=== PATIENT | male | born 1945 | race Caucasian/White ===

== ENCOUNTER 2017-03-26 08:16 | Outpatient (CLI) | payer MEDICARE, OTHER ==
[2017-03-26 13:12] LABS: CALCIUM 9.4 mg/dL (8.5-10.3); CREATININE 1.4 mg/dL (0.6-1.2); POTASSIUM 4.1 mmol/L (3.5-5.0)
== END 2017-03-26 08:17 | disposition home or self-care (01) ==
LOC: LAB.WCP 08:16
PROVIDERS: ATTEND Family Medicine
DX: I10 Essential (primary) hypertension (principal)
CPT/HCPCS: 36415; 80048

== ENCOUNTER 2017-04-16 17:45 | Outpatient (CLI) | payer MEDICARE, OTHER ==
[2017-04-16 13:43] LABS: ALBUMIN/GLOBULIN RATIO 1.5 (1.0-2.2); BILIRUBIN,TOTAL 0.6 mg/dL (0.2-1.0); BUN - BLOOD UREA NITROGEN 27 mg/dL (6-20); CALCIUM 9.4 mg/dL (8.5-10.3); CARBON DIOXIDE - CO2 25 mmol/L (21-32); CHLORIDE 107 mmol/L (101-111); CHOL/HDL RATIO 3.7 (<5.0); CHOLESTEROL 156 mg/dL; CREATININE 1.4 mg/dL (0.6-1.2); GFR - MDRD 50 (>89); GLUCOSE 98 mg/dL (70-100); HDL CHOLESTEROL 42 mg/dL; LDL/HDL RATIO 2.3 (<3.6); POTASSIUM 4.1 mmol/L (3.5-5.0); SODIUM 139 mmol/L (135-145); TOTAL PROTEIN 6.8 g/dL (6.7-8.2); TRIGLYCERIDES 97 mg/dL; VLDL CHOLESTEROL 19 mg/dL
== END 2017-04-16 17:46 | disposition home or self-care (01) ==
LOC: LAB.WCP 17:45
PROVIDERS: ATTEND Family Medicine
DX: N13.30 Unspecified hydronephrosis (principal); N40.0 Benign prostatic hyperplasia without lower urinary tract symptoms
CPT/HCPCS: 36415; 80053; 80061; 84153

== ENCOUNTER 2017-09-27 08:00 | Outpatient (CLI) | payer MEDICARE, OTHER ==
[2017-09-27 19:24] LABS: ALBUMIN 4.1 g/dL (3.2-5.5); ALBUMIN/GLOBULIN RATIO 1.4 (1.0-2.2); BILIRUBIN,TOTAL 0.6 mg/dL (0.2-1.0); CREATININE 1.5 mg/dL (0.6-1.2)
== END 2017-09-27 08:01 | disposition home or self-care (01) ==
LOC: LAB.WCP 08:00
PROVIDERS: ATTEND Family Medicine
DX: I12.9 Hypertensive chronic kidney disease with stage 1 through stage 4 chronic kidney disease, or unspecified chronic kidney disease (principal); N18.3 Chronic kidney disease, stage 3 (moderate)
CPT/HCPCS: 36415; 80053

== ENCOUNTER 2018-07-11 10:56 | Outpatient (CLI) | payer MEDICARE, OTHER ==
[2018-07-11 11:10] LABS: BASOPHILS # (AUTO) 0.1 10^3/uL (0.0-0.1); EOSINOPHILS # (AUTO) 0.2 10^3/uL (0.0-0.7); EOSINOPHILS % (AUTO) 3.4 %; HGB - HEMOGLOBIN 14.2 g/dL (14.0-18.0); LYMPHOCYTES # (AUTO) 1.1 10^3/uL (1.5-3.5); LYMPHOCYTES % (AUTO) 18.7 %; MEAN CORPUSCULAR HGB CONC 34.2 g/dL (32.0-36.0); MEAN CORPUSCULAR VOLUME 87.7 fL (80.0-94.0); MEAN PLATELET VOLUME 8.3 fL (7.4-11.4); MONOCYTES # (AUTO) 0.5 10^3/uL (0.0-1.0); MONOCYTES % (AUTO) 8.8 %; NEUTROPHILS # (AUTO) 3.9 10^3/uL (1.5-6.6); NEUTROPHILS % (AUTO) 68.1 %; PLT - PLATELET COUNT 213 10^3/uL (130-450); RED BLOOD COUNT 4.73 10^6/uL (4.70-6.10); RED CELL DISTRIBUTION WIDTH 13.3 % (12.0-15.0); WHITE BLOOD COUNT 5.8 x10^3/uL (4.8-10.8)
[2018-07-11 11:18] LABS: CALCIUM 9.1 mg/dL (8.5-10.3); CREATININE 1.4 mg/dL (0.6-1.2)
== END 2018-07-11 10:57 | disposition home or self-care (01) ==
LOC: LAB 10:56
PROVIDERS: ATTEND Urology
DX: Z01.812 Encounter for preprocedural laboratory examination (principal); N13.30 Unspecified hydronephrosis
CPT/HCPCS: 36415; 80048; 85025; 93005

== ENCOUNTER 2018-09-15 08:00 | Outpatient (CLI) | payer MEDICARE, OTHER ==
[2018-09-15 19:28] LABS: BASOPHILS # (AUTO) 0.1 10^3/uL (0.0-0.1); BASOPHILS % (AUTO) 1.2 %; EOSINOPHILS # (AUTO) 0.2 10^3/uL (0.0-0.7); EOSINOPHILS % (AUTO) 4.4 %; HGB - HEMOGLOBIN 14.4 g/dL (14.0-18.0); LYMPHOCYTES # (AUTO) 1.1 10^3/uL (1.5-3.5); LYMPHOCYTES % (AUTO) 23.8 %; MEAN CORPUSCULAR HEMOGLOBIN 29.9 pg (27.0-31.0); MEAN CORPUSCULAR HGB CONC 33.2 g/dL (32.0-36.0); MEAN CORPUSCULAR VOLUME 89.8 fL (80.0-94.0); MEAN PLATELET VOLUME 9.2 fL (7.4-11.4); MONOCYTES # (AUTO) 0.4 10^3/uL (0.0-1.0); MONOCYTES % (AUTO) 8.8 %; NEUTROPHILS # (AUTO) 2.8 10^3/uL (1.5-6.6); NEUTROPHILS % (AUTO) 61.8 %; PLT - PLATELET COUNT 196 10^3/uL (130-450); RED BLOOD COUNT 4.81 10^6/uL (4.70-6.10); RED CELL DISTRIBUTION WIDTH 13.7 % (12.0-15.0); WHITE BLOOD COUNT 4.6 x10^3/uL (4.8-10.8)
[2018-09-15 19:35] LABS: ALBUMIN/GLOBULIN RATIO 1.3 (1.0-2.2); ALKALINE PHOSPHATASE 68 IU/L (42-121); ALT ALANINE AMINOTRANSFERASE 29 IU/L (10-60); AST ASPARTATE AMINOTRANSFERASE 23 IU/L (10-42); BILIRUBIN,TOTAL 0.8 mg/dL (0.2-1.0); BUN - BLOOD UREA NITROGEN 21 mg/dL (6-20); CALCIUM 9.2 mg/dL (8.5-10.3); CARBON DIOXIDE - CO2 28 mmol/L (21-32); CHLORIDE 107 mmol/L (101-111); CHOL/HDL RATIO 4.1 (<5.0); CHOLESTEROL 138 mg/dL; CREATININE 1.5 mg/dL (0.6-1.2); GFR - MDRD 46 (>89); GLUCOSE 92 mg/dL (70-100); HDL CHOLESTEROL 34 mg/dL; LDL CHOLESTEROL,CALCULATED 74 mg/dL; LDL/HDL RATIO 2.2 (<3.6); SODIUM 140 mmol/L (135-145); VLDL CHOLESTEROL 30 mg/dL
== END 2018-09-15 23:59 | disposition home or self-care (01) ==
LOC: LAB.WCP 08:00
PROVIDERS: ATTEND Family Medicine
DX: I12.9 Hypertensive chronic kidney disease with stage 1 through stage 4 chronic kidney disease, or unspecified chronic kidney disease (principal); N18.3 Chronic kidney disease, stage 3 (moderate); E78.9 Disorder of lipoprotein metabolism, unspecified; Z12.5 Encounter for screening for malignant neoplasm of prostate; N13.30 Unspecified hydronephrosis; G47.62 Sleep related leg cramps
CPT/HCPCS: 36415; 80053; 80061; 85025; G0103; 83721; 84153

== ENCOUNTER 2019-05-28 08:00 | Outpatient (CLI) | payer MEDICARE, OTHER ==
[2019-05-28 13:23] LABS: CREATININE 1.4 mg/dL (0.6-1.2)
== END 2019-05-28 23:59 | disposition home or self-care (01) ==
LOC: LAB.WCP 08:00
PROVIDERS: ATTEND Family Medicine
DX: N18.3 Chronic kidney disease, stage 3 (moderate) (principal)
CPT/HCPCS: 36415; 80048

== ENCOUNTER 2019-09-08 09:07 | Outpatient (CLI) | payer MEDICARE, OTHER ==
[2019-09-08 09:28] LABS: BASOPHILS # (AUTO) 0.1 10^3/uL (0.0-0.1); BASOPHILS % (AUTO) 1.3 %; EOSINOPHILS # (AUTO) 0.3 10^3/uL (0.0-0.7); EOSINOPHILS % (AUTO) 5.3 %; HGB - HEMOGLOBIN 13.7 g/dL (14.0-18.0); LYMPHOCYTES # (AUTO) 1.1 10^3/uL (1.5-3.5); LYMPHOCYTES % (AUTO) 19.7 %; MEAN CORPUSCULAR HEMOGLOBIN 30.8 pg (27.0-31.0); MEAN CORPUSCULAR HGB CONC 34.7 g/dL (32.0-36.0); MEAN CORPUSCULAR VOLUME 88.8 fL (80.0-94.0); MEAN PLATELET VOLUME 10.1 fL (7.4-11.4); MONOCYTES # (AUTO) 0.5 10^3/uL (0.0-1.0); MONOCYTES % (AUTO) 8.4 %; NEUTROPHILS # (AUTO) 3.6 10^3/uL (1.5-6.6); NEUTROPHILS % (AUTO) 64.9 %; PLT - PLATELET COUNT 232 10^3/uL (130-450); RED BLOOD COUNT 4.45 10^6/uL (4.70-6.10); RED CELL DISTRIBUTION WIDTH 12.9 % (12.0-15.0); WHITE BLOOD COUNT 5.5 x10^3/uL (4.8-10.8)
[2019-09-08 09:36] LABS: CALCIUM 8.9 mg/dL (8.5-10.3); CREATININE 1.5 mg/dL (0.6-1.2)
--- NOTE | 2019-09-08 14:57 | XRAY Report ---
Reason: N Procedure Date: 09/08/2019 Accession Number: [id number] / [id number] Procedure: XR - Chest 2 View X-Ray CPT Code: 44113 Final Report FULL RESULT: EXAM: CHEST RADIOGRAPHY EXAM DATE: 09/08/2019 10:18 AM. CLINICAL HISTORY: Presurgical examination. Right hydronephrosis with planned stent manipulation. COMPARISON: CHEST 11/16/2008 10:21 AM. TECHNIQUE: 2 views. FINDINGS: Lungs/Pleura: No focal opacities evident. No pleural effusion. No pneumothorax. Normal volumes. Mediastinum: The cardiac silhouette is at the upper limits of normal for size, subtle calcifications of the arch are noted. Other: Calcification in the right upper quadrant may represent urolithiasis. IMPRESSION: No acute cardiopulmonary abnormality. RADIA
== END 2019-09-08 09:08 | disposition home or self-care (01) ==
LOC: LAB 09:07
PROVIDERS: ATTEND Urology
DX: Z01.818 Encounter for other preprocedural examination (principal); N13.30 Unspecified hydronephrosis; N26.1 Atrophy of kidney (terminal)
CPT/HCPCS: 36415; 71046; 80048; 85025; 93005

== ENCOUNTER 2019-09-14 07:49 | Day surgery (SDC) | payer MEDICARE, OTHER ==
[~2019-09-14 07:49] MED LIST: cefTRIAXone 2 GM VIAL ONE
[2019-09-14] MEDS ORDERED: LACTATED RINGERS 1,000 ML IV ONE ×3 (08:33→11:47)
--- NOTE | 2019-09-14 09:09 | ANESTHESIA ---
Pre-Anesthesia VS, & Labs - Diagnosis right hydronephrosis - Procedure cystoscopy, right ureteral stent removal and replacement Vital Signs: Temp Pulse Resp BP Pulse Ox 36.7 C 58 L 18 145/95 H 97 09/14/19 08:06 09/14/19 08:06 09/14/19 08:06 09/14/19 08:06 09/14/19 08:06 Height 5 ft 7 in Weight (kg) 93 kg Body Mass Index 32.2 - NPO >8 hours - Lab Results Current Lab Results: Laboratory Tests 09/14/19 08:44: POC Whole Bld Glucose 94 Home Medications and Allergies Home Medications: Ambulatory Orders Hydrochlorothiazide 12.5 mg PO DAILY 09/08/19 Magnesium Oxide 500 mg PO DAILY 09/08/19 Pantoprazole Sodium 40 mg PO DAILY 09/08/19 Telmisartan [Micardis] 80 mg PO DAILY 09/08/19 Aspirin Chewable [St Luis Aspirin] 81 mg PO DAILY 06/20/16 Atorvastatin [Lipitor] 10 mg PO DAILY PM 06/20/16 Hydrochlorothiazide 12.5 mg PO DAILY 09/08/19 Magnesium Oxide 500 mg PO DAILY 09/08/19 Pantoprazole Sodium 40 mg PO DAILY 09/08/19 Telmisartan [Micardis] 80 mg PO DAILY 09/08/19 Allergies/Adverse Reactions: Allergies Allergy/AdvReac Type Severity Reaction Status Date / Time No Known Drug Allergies Allergy Verified 06/20/16 13:56 Anes History & Medical History - Anesthetic History Anesthesia Complications: reports: No previous complications, Emergence delirium (with first anesthetic, no problems since.) - Medical History Cardiovascular: reports: Hypertension, High cholesterol Pulmonary: reports: Sleep apnea, CPAP use Gastrointestinal: reports: GERD (controlled on medication) Urinary: reports: Other (right hydronephrosis) Neuro: reports: None Musculoskeletal: reports: Chronic back pain Endocrine/Autoimmune: reports: None Blood Disorders: reports: None Skin: reports: None Smoking Status: Never smoker Psychosocial: reports: Alcohol (2 beers, several times per week.) - Surgical History General: Cholecystectomy Orthopedic: Other Exam General: Alert, Oriented x3, Cooperative, No acute distress Dental: WNL Mouth Openin Fingerbreadth Neck Mobility: Normal Mallampati classification: III Thyromental Distance: greater than 6 cm Respiratory: Lungs clear, Normal breath sounds, No respiratory distress, No accessory muscle use Cardiovascular: Regular rate, Normal S1, Normal S2, No murmurs Mental/Cognitive Status: Alert/Oriented X3, Normal for patient Plan Anesthesia Type: General Consent for Procedure(s) Verified and Reviewed: Yes Code Status: Attempt Resuscitation ASA classification: 2-Mild systemic disease Is this case an emergency?: No
[2019-09-14] MEDS ORDERED: IOTHALAMATE MEGLUMINE 50 ML VIAL ONE (10:10)
[2019-09-14] MEDS ORDERED: MIDAZOLAM 2 MG/2 ML VIAL IVP ONE (10:23)
[2019-09-14] MEDS ORDERED: LIDOCAINE-MPF 2% 5 ML VIAL IM ONE (10:23)
[2019-09-14] MEDS ORDERED: PROPOFOL 200 MG/20 ML VIAL IVP ONE (10:23)
[2019-09-14] MEDS ORDERED: DEXAMETHASONE 4 MG/ML VIAL IVP ONE (10:23)
[2019-09-14] MEDS ORDERED: ONDANSETRON 4 MG/2 ML VIAL IVP ONE (10:23)
[2019-09-14] MEDS ORDERED: fentaNYL 100 MCG/2 ML VIAL IVP ONE (10:23)
[2019-09-14] MEDS ORDERED: IOTHALAMATE MEGLUMINE 50 ML VIAL IVP ONE ×2 (11:17)
--- NOTE | 2019-09-14 11:51 | IMMEDIATE POSTOPERATIVE NOTE ---
Immediate Postoperative Note - Procedure Note Procedure Date: 09/14/19 Pre-Op Diagnosis: R hydronephrosis Procedure: Cystoscopy, R ureteral stent removal, R ureteral stent placement, R retrograde pyelogram, and dilation of urethral meatal stenosis Post-Op Diagnosis: R hydronephrosis, urethral meatal stenosis Primary Surgeon: Elvis Perez MD Job Service Consultant: None Anesthesia Type: Other (General) Findings: Mild urethral meatal stenosis was seen. Dilation of urethral meatal stenosis was performed. Cystoscopy revealed no bladder tumors or calculi and distal end of R ureteral stent emerging from R ureteral orifice. Old R ureteral stent was removed. R retrograde pyelogram showed moderate-severe R hydronephrosis. New R ureteral stent was placed. Complications: No complications Estimated Blood Loss (in cc): 2 Drains, Catheters, Devices: 22cm x 6F R ureteral JJ stent (no string) Specimens and Cultures: None Plan of Care: Patient to be discharged home when stable and to return to see me in the office in 1-4 weeks for post-op visit.
[2019-09-14] MEDS ORDERED: HYDROmorphone 0.5 MG/0.5 ML SYRINGE IVP PRN (12:03)
[2019-09-14] MEDS ORDERED: ONDANSETRON 4 MG/2 ML VIAL IVP PRN (12:03)
[2019-09-14] MEDS ORDERED: HYDROcod/ACETAM 10 MG/325 MG TABLET PO PRN (12:03)
[2019-09-14 12:36] VITALS: BP 116/95
--- NOTE | 2019-09-16 07:32 | XRAY Report ---
Reason: CYSTO WITH STENT EXCHANGE Procedure Date: 09/14/2019 Accession Number: [id number] / [id number] Procedure: FL - OR C-Arm Procedure CPT Code: Final Report FULL RESULT: EXAM: FLUOROSCOPIC GUIDANCE EXAM DATE: 09/14/2019 11:28 AM. CLINICAL HISTORY: Cystography with stent exchange. COMPARISON: None. FINDINGS: Fluoroscopy for procedural guidance. IMPRESSION: Fluoroscopic guidance provided for Dr. Perez. Total fluoroscopy time: 0.6 minutes. Number of images: 3. RADIA
--- NOTE | 2019-09-17 09:27 | OPERATIVE REPORT ---
DATE OF SERVICE: 09/14/2019 Physician: Elvis Perez MD PREOPERATIVE DIAGNOSIS: Right hydronephrosis. POSTOPERATIVE DIAGNOSES: 1. Right hydronephrosis. 2. Urethral meatal stenosis. PROCEDURE PERFORMED: 1. Cystoscopy. 2. Right ureteral stent removal. 3. Right ureteral stent placement. 4. Right retrograde pyelogram. 5. Dilation of urethral meatal stenosis. SURGEON: Elvis Perez MD TUNNEL MAN: None. ANESTHESIA: General. ESTIMATED BLOOD LOSS: 2 mL SPECIMENS: None. DRAINS: A 22 cm x 6-Korean right ureteral double-J stent (no string). COMPLICATIONS: None. CONDITION: Stable. FINDINGS: Mild urethral meatal stenosis was seen. Dilation of urethral meatal stenosis was performe d. Cystoscopy revealed no bladder tumors or calculi and distal end of right ureteral stent emerging from the right ureteral orifice. Old right ureteral stent was removed. Right retrograde pyelogram s howed moderate to severe right hydronephrosis, new right ureteral stent was placed. INDICATIONS: Patient is a 74-year-old male with right hydronephrosis with chronic indwelling right u reteral stent and last had cystoscopy and right ureteral stent change in 02/2019. Patient now presen ts for cystoscopy, right ureteral stent removal and right ureteral stent placement. DESCRIPTION OF PROCEDURE: Patient was brought to the operating room and was placed supine on the ope rating table. Patient was given IV antibiotics. Sequential compression device boots were placed. G eneral anesthesia was administered. Patient was brought down into dorsal lithotomy position, the pat ient was prepped and draped in standard sterile fashion. A 22-Korean rigid cystoscope was attempted to be passed through the urethral meatus and into the distal urethra; however, this was initially deidre ble to be done as a mild urethral meatal stenosis was seen. Dilation of the urethral meatal stenosis was performed. The urethral meatal stenosis was dilated bluntly using the rigid cystoscope. After dilation of urethral meatal stenosis was performed the 22-Korean rigid cystoscope was able to be pass ed through the urethral meatus and into the distal urethra without difficulty. Cystoscopy revealed n o bladder tumors or calculi and the distal end of the right ureteral stent emerging from the right ur eteral orifice and bilateral ureteral orifices in normal position. The distal end of the right urete ral stent was grasped with the cystoscopic grasper, and brought out to the urethral meatus. An Ampla tz Super Stiff guidewire was able to be passed through the old ureteral stent up the right ureter and into the right renal pelvis. The old right ureteral stent was removed in its entirety and was disca rded. The rigid cystoscope was passed over the wire through the urethra into the bladder. A 5-Frenc h open-ended catheter was passed over the guidewire through the cystoscope. Once passed up the right ureter and into the right renal pelvis, the guidewire was removed. Urine was drained from the right renal collecting system via the open-ended catheter. A small amount of contrast was instilled throu gh the open-ended catheter into the right renal collecting system to illuminate the right renal colle cting system to aid in stent placement, thus performing a right retrograde pyelogram. Right retrogra de pyelogram showed moderate to severe right hydronephrosis. Then a new right ureteral stent was rubens gigi. Specifically, an angle-tipped UltraTract guidewire was advanced through the open-ended catheter up the right ureter and into the right renal pelvis. The [facility] A new right ureteral stent was placed, specifically a 22 cm x 6-Korean ureteral double-J braden nt. With the stents removed, prior to stent placement, was passed over the wire through the cystosco pe was passed up the right ureter. It was placed so that the proximal pigtail was located in the rig ht renal pelvis and the distal pigtail was located in the bladder. The guidewire was removed. Corre ct positioning of the stent was confirmed both fluoroscopically and under direct visualization using the cystoscope. Good efflux of contrast could be seen draining from the distal end of the stent into the bladder, further confirming correct stent positioning thus a new right ureteral stent was placed . The bladder was drained via the cystoscope. The cystoscope was then removed from the patient. Sk in was clean and dried. Patient was placed in the supine position. Patient was awakened from genera l anesthesia and was transferred to the recovery room in stable condition. Patient tolerated the pro cedure well. Postoperative plan is for the patient to be discharged home if stable and return to see tn in the off ice in 1-4 weeks for a postoperative visit. TD: 09/17/2019 08:06
== END 2019-09-14 07:50 | disposition home or self-care (01) ==
LOC: SDS 07:49
PROVIDERS: ATTEND Urology
PROC: 0T768DZ Dilation of Right Ureter with Intraluminal Device, Via Natural or Artificial Opening Endoscopic (ICD-10-PCS; 2019-09-14)
PROC: 0TP98DZ Removal of Intraluminal Device from Ureter, Via Natural or Artificial Opening Endoscopic (ICD-10-PCS; principal; 2019-09-14 09:00)
DX: N13.30 Unspecified hydronephrosis (principal); N35.911 Unspecified urethral stricture, male, meatal; G47.33 Obstructive sleep apnea (adult) (pediatric); I12.9 Hypertensive chronic kidney disease with stage 1 through stage 4 chronic kidney disease, or unspecified chronic kidney disease; N18.9 Chronic kidney disease, unspecified; E78.5 Hyperlipidemia, unspecified; K21.9 Gastro-esophageal reflux disease without esophagitis; G89.29 Other chronic pain; M54.9 Dorsalgia, unspecified; Z79.82 Long term (current) use of aspirin
CPT/HCPCS: 52332; C1758; J7120; Q9961

== ENCOUNTER 2020-01-29 07:00 | Outpatient (CLI) | payer MEDICARE, OTHER ==
[2020-01-29 13:25] LABS: BASOPHILS % (AUTO) 0.7 %; EOSINOPHILS # (AUTO) 0.2 10^3/uL (0.0-0.7); EOSINOPHILS % (AUTO) 3.3 %; HGB - HEMOGLOBIN 13.5 g/dL (14.0-18.0); LYMPHOCYTES # (AUTO) 0.9 10^3/uL (1.5-3.5); LYMPHOCYTES % (AUTO) 16.2 %; MEAN CORPUSCULAR HGB CONC 32.7 g/dL (32.0-36.0); MEAN CORPUSCULAR VOLUME 88.8 fL (80.0-94.0); MEAN PLATELET VOLUME 11.6 fL (7.4-11.4); MONOCYTES # (AUTO) 0.5 10^3/uL (0.0-1.0); MONOCYTES % (AUTO) 7.7 %; NEUTROPHILS # (AUTO) 4.2 10^3/uL (1.5-6.6); NEUTROPHILS % (AUTO) 71.9 %; PLT - PLATELET COUNT 245 10^3/uL (130-450); RED BLOOD COUNT 4.65 10^6/uL (4.70-6.10); RED CELL DISTRIBUTION WIDTH 13.2 % (12.0-15.0); WHITE BLOOD COUNT 5.8 x10^3/uL (4.8-10.8)
[2020-01-29 14:22] LABS: ALBUMIN 4.1 g/dL (3.2-5.5); ALBUMIN/GLOBULIN RATIO 1.3 (1.0-2.2); ALKALINE PHOSPHATASE 93 IU/L (42-121); ALT ALANINE AMINOTRANSFERASE 33 IU/L (10-60); AST ASPARTATE AMINOTRANSFERASE 26 IU/L (10-42); BILIRUBIN,TOTAL 0.9 mg/dL (0.2-1.0); BUN - BLOOD UREA NITROGEN 26 mg/dL (6-20); CALCIUM 9.4 mg/dL (8.5-10.3); CARBON DIOXIDE - CO2 25 mmol/L (21-32); CHLORIDE 110 mmol/L (101-111); CHOL/HDL RATIO 4.3 (<5.0); CHOLESTEROL 155 mg/dL; CREATININE 1.4 mg/dL (0.6-1.2); GLUCOSE 98 mg/dL (70-100); HDL CHOLESTEROL 36 mg/dL; LDL CHOLESTEROL,CALCULATED 77 mg/dL; LDL/HDL RATIO 2.1 (<3.6); SODIUM 141 mmol/L (135-145); TOTAL PROTEIN 7.2 g/dL (6.7-8.2); VLDL CHOLESTEROL 42 mg/dL
== END 2020-01-29 23:59 | disposition home or self-care (01) ==
LOC: LAB.WCP 07:00
PROVIDERS: ATTEND Family Medicine
DX: I12.9 Hypertensive chronic kidney disease with stage 1 through stage 4 chronic kidney disease, or unspecified chronic kidney disease (principal); N18.3 Chronic kidney disease, stage 3 (moderate); E78.5 Hyperlipidemia, unspecified; R97.20 Elevated prostate specific antigen [PSA]
CPT/HCPCS: 36415; 80053; 80061; 83721; 84153; 84443; 85025

== ENCOUNTER 2020-11-20 16:54 | Emergency (ER) | payer MEDICARE, OTHER ==
--- NOTE | 2020-11-20 17:14 | ED Physician Documentation ---
History of Present Illness - Stated complaint Stated Complaint: POST OP FEVER/CHILLS - Chief complaint Chief Complaint: Fever - History obtained from History obtained from: Patient - History of Present Illness Timing: Today Pain level max: 0 Pain level now: 0 - Additonal information Additional information: 75-year-old male presents to the emergency department stating he had a right ureteral stent placed 3 days ago at [facility] by Dr. Bower, states fevers since last night. T-max 106. Nothing makes it better or worse. States minimal cough. Minimal rhinorrhea. No abdominal pain. No constipation. No vomiting. No diarrhea. No chest pain. Nothing makes it better or worse. Review of Systems Ten Systems: 10 systems reviewed and negative Constitutional: reports: Fever, Chills, Myalgias Nose: denies: Rhinorrhea / runny nose, Congestion Throat: denies: Sore throat Cardiac: denies: Chest pain / pressure, Palpitations Respiratory: reports: Cough (Mild, dry). denies: Dyspnea GI: denies: Abdominal Pain, Nausea, Vomiting, Diarrhea : denies: Dysuria Skin: denies: Rash Musculoskeletal: denies: Neck pain, Back pain Neurologic: denies: Headache PD PAST MEDICAL HISTORY - Past Medical History Cardiovascular: Hypertension, High cholesterol Respiratory: Sleep apnea, CPAP use Neuro: None Endocrine/Autoimmune: None GI: GERD (controlled on medication) : Other (right hydronephrosis) HEENT: Chronic vision loss, Chronic hearing loss Psych: None Musculoskeletal: Chronic back pain Derm: None - Past Surgical History Past Surgical History: Yes General: Cholecystectomy Ortho: Other - Present Medications Home Medications: Ambulatory Orders Medication Instructions Recorded Confirmed Aspirin Chewable [St Luis 81 mg PO DAILY 06/20/16 11/20/20 Aspirin] Atorvastatin [Lipitor] 10 mg PO DAILY PM 06/20/16 11/20/20 Hydrochlorothiazide 12.5 mg PO DAILY 09/08/19 11/20/20 Magnesium Oxide 500 mg PO DAILY 09/08/19 11/20/20 Telmisartan [Micardis] 80 mg PO DAILY 09/08/19 11/20/20 Aspirin [Aspirin EC] 81 mg PO DAILY 11/20/20 11/20/20 Tamsulosin [Flomax] 0.4 mg PO DAILY 11/20/20 11/20/20 amLODIPine [Norvasc] 5 mg PO DAILY 11/20/20 11/20/20 - Allergies Allergies/Adverse Reactions: Allergies Allergy/AdvReac Type Severity Reaction Status Date / Time No Known Drug Allergies Allergy Verified 11/20/20 17:09 - Social History Does the pt smoke?: No Smoking Status: Never smoker Does the pt drink ETOH?: Yes Does the pt have substance abuse?: No - Immunizations Immunizations are current?: Yes PD ED PE NORMAL - Vitals Vital signs reviewed: Yes - General General: Alert and oriented X 3, No acute distress - HEENT HEENT: Moist mucous membranes - Neck Neck: Supple, no meningeal sign - Cardiac Cardiac: RRR, Strong equal pulses - Respiratory Respiratory: No respiratory distress, Clear bilaterally - Abdomen Abdomen: Soft, Non tender, Non distended - Back Back: No CVA TTP, No spinal TTP - Derm Derm: Warm and dry - Neuro Neuro: Alert and oriented X 3 - Psych Psych: Normal mood, Normal affect Results - Vitals Vitals: Vital Signs - 24 hr 11/20/20 11/20/20 11/20/20 17:05 17:08 17:21 Temperature 38.4 C H 38.4 C H Heart Rate 88 88 88 Respiratory 15 15 16 Rate Blood Pressure 170/84 H 170/84 H 170/84 H O2 Saturation 96 96 98 Oxygen O2 Source Room air - Labs Labs: Laboratory Tests 11/20/20 11/20/20 11/20/20 17:11 17:11 17:11 WBC 10.4 RBC 4.21 L Hgb 12.7 L Hct 37.1 L MCV 88.1 MCH 30.2 MCHC 34.2 RDW 13.1 Plt Count 195 MPV 9.9 Neut # (Auto) 8.6 H Lymph # (Auto) 0.8 L Hamilton # (Auto) 0.7 Eos # (Auto) 0.1 Baso # (Auto) 0.1 Absolute Nucleated RBC 0.00 Nucleated RBC % 0.0 PT INR APTT Sodium 134 L Potassium 4.1 Chloride 100 L Carbon Dioxide 24 Anion Gap 10.0 BUN 26 H Creatinine 1.5 H Estimated GFR (MDRD) 46 L Glucose 112 H Lactic Acid 1.0 Calcium 9.0 Total Bilirubin 1.5 H AST 20 ALT 28 Alkaline Phosphatase 63 Total Protein 7.1 Albumin 4.1 Globulin 3.0 Albumin/Globulin Ratio 1.4 Lipase 31 Urine Color Urine Clarity Urine pH Ur Specific Wilton Urine Protein Urine Glucose (UA) Urine Ketones Urine Occult Blood Urine Nitrite Urine Bilirubin Urine Urobilinogen Ur Leukocyte Esterase Urine RBC Urine WBC Ur Squamous Epith Cells Urine Bacteria Ur Microscopic Review Urine Culture Comments Nasal Adenovirus (PCR) Nasal B. parapertussis DNA (PCR) Nasal Coronavir 229E PCR Nasal Coronavir HKU1 PCR Nasal Coronavir NL63 PCR Nasal Coronavir OC43 PCR Nasal Enterovir/Rhinovir PCR Nasal Influenza B PCR Nasal Influenza A PCR Nasal Parainfluen 1 PCR Nasal Parainfluen 2 PCR Nasal Parainfluen 3 PCR Nasal Parainfluen 4 PCR Nasal RSV (PCR) Nasal B.pertussis DNA PCR Nasal C.pneumoniae (PCR) Roe Human Metapneumo PCR Nasal M.pneumoniae (PCR) Nasal SARS-CoV-2 (PCR) 11/20/20 11/20/20 11/20/20 17:16 17:16 17:22 WBC RBC Hgb Hct MCV MCH MCHC RDW Plt Count MPV Neut # (Auto) Lymph # (Auto) Hamilton # (Auto) Eos # (Auto) Baso # (Auto) Absolute Nucleated RBC Nucleated RBC % PT 11.6 INR 1.0 APTT 19.4 L Sodium Potassium Chloride Carbon Dioxide Anion Gap BUN Creatinine Estimated GFR (MDRD) Glucose Lactic Acid Calcium Total Bilirubin AST ALT Alkaline Phosphatase Total Protein Albumin Globulin Albumin/Globulin Ratio Lipase Urine Color DARK YELLOW Urine Clarity HAZY Urine pH 7.0 Ur Specific Wilton 1.015 Urine Protein NEGATIVE Urine Glucose (UA) NEGATIVE Urine Ketones NEGATIVE Urine Occult Blood NEGATIVE Urine Nitrite POSITIVE H Urine Bilirubin NEGATIVE Urine Urobilinogen 0.2 (NORMAL) Ur Leukocyte Esterase SMALL H Urine RBC TNTC H Urine WBC >25 H Ur Squamous Epith Cells RARE Squamous Urine Bacteria Few Ur Microscopic Review INDICATED Urine Culture Comments INDICATED Nasal Adenovirus (PCR) NOT DETECTED Nasal B. parapertussis DNA (PCR) NOT DETECTED Nasal Coronavir 229E PCR NOT DETECTED Nasal Coronavir HKU1 PCR NOT DETECTED Nasal Coronavir NL63 PCR NOT DETECTED Nasal Coronavir OC43 PCR NOT DETECTED Nasal Enterovir/Rhinovir PCR NOT DETECTED Nasal Influenza B PCR NOT DETECTED Nasal Influenza A PCR NOT DETECTED Nasal Parainfluen 1 PCR NOT DETECTED Nasal Parainfluen 2 PCR NOT DETECTED Nasal Parainfluen 3 PCR NOT DETECTED Nasal Parainfluen 4 PCR NOT DETECTED Nasal RSV (PCR) NOT DETECTED Nasal B.pertussis DNA PCR NOT DETECTED Nasal C.pneumoniae (PCR) NOT DETECTED Roe Human Metapneumo PCR NOT DETECTED Nasal M.pneumoniae (PCR) NOT DETECTED Nasal SARS-CoV-2 (PCR) NOT DETECTED - Rads (name of study) CT abdomen and pelvis Radiology: Prelim report reviewed, EMP read contemporaneously, See rad report PD MEDICAL DECISION MAKING - ED course Complexity details: reviewed results, re-evaluated patient, considered differential, d/w patient ED course: Is a 75-year-old male who presents to the emergency department with fever since last night status post ureteral stent on Saturday for a right pelvic kidney with recurrent obstruction. His CT scan shows that the stent is in good position. There is no abscess or perforation. Urinalysis appears to have a UTI. Given Rocephin. Hemodynamically stable. Covid is negative. Chest x-ray is negative. Discussed the case with Dr. Doshi, urology on-call at [facility] recommends transfer to the hospitalist there. Discussed the case with Dr. Adhikari who graciously accepts in transfer. COBRA forms completed. This document was made in part using voice recognition software. While efforts are made to proofread this document, sound alike and grammatical errors may occur. CT abdomen and pelvis: IMPRESSION: Unremarkable right-sided ureteral stent. The right kidney is atrophic and low lying. Prominence of the right renal pelvis can be seen. CXR: Portable chest within normal limits for age. Departure - Departure Disposition: 02 Transfer Acute Care Hosp Clinical Impression: Pyelonephritis, S/P ureteral stent placement Fever Qualifiers: Fever type: unspecified Qualified Code(s): R50.9 - Fever, unspecified Condition: Stable
[2020-11-20 17:17] LABS: BASOPHILS # (AUTO) 0.1 10^3/uL (0.0-0.1); BASOPHILS % (AUTO) 0.7 %; EOSINOPHILS # (AUTO) 0.1 10^3/uL (0.0-0.7); EOSINOPHILS % (AUTO) 1.3 %; HCT - HEMATOCRIT 37.1 % (42.0-52.0); HGB - HEMOGLOBIN 12.7 g/dL (14.0-18.0); LYMPHOCYTES # (AUTO) 0.8 10^3/uL (1.5-3.5); MEAN CORPUSCULAR HEMOGLOBIN 30.2 pg (27.0-31.0); MEAN CORPUSCULAR HGB CONC 34.2 g/dL (32.0-36.0); MEAN CORPUSCULAR VOLUME 88.1 fL (80.0-94.0); MEAN PLATELET VOLUME 9.9 fL (7.4-11.4); MONOCYTES # (AUTO) 0.7 10^3/uL (0.0-1.0); NEUTROPHILS # (AUTO) 8.6 10^3/uL (1.5-6.6); NEUTROPHILS % (AUTO) 82.6 %; PLT - PLATELET COUNT 195 10^3/uL (130-450); RED BLOOD COUNT 4.21 10^6/uL (4.70-6.10); RED CELL DISTRIBUTION WIDTH 13.1 % (12.0-15.0); WHITE BLOOD COUNT 10.4 x10^3/uL (4.8-10.8)
[2020-11-20] MEDS ORDERED: IOVERSOL 320 100 ML VIAL IVP ONE ×2 (17:27→18:00)
[2020-11-20 17:30] LABS: ALBUMIN 4.1 g/dL (3.2-5.5); ALBUMIN/GLOBULIN RATIO 1.4 (1.0-2.2); BILIRUBIN,TOTAL 1.5 mg/dL (0.2-1.0); CREATININE 1.5 mg/dL (0.6-1.2); POTASSIUM 4.1 mmol/L (3.5-5.0); TOTAL PROTEIN 7.1 g/dL (6.7-8.2)
[2020-11-20 17:33] LABS: BILIRUBIN,URINE NEGATIVE (NEGATIVE); GLUCOSE, URINE (UA) NEGATIVE (NEGATIVE); KETONES,URINE (UA) NEGATIVE (NEGATIVE); LEUKOCYTE ESTERASE, URINE SMALL (NEGATIVE); NITRITE,URINE POSITIVE (NEGATIVE); OCCULT BLOOD,URINE NEGATIVE (NEGATIVE); PROTEIN,URINE NEGATIVE (NEGATIVE); UROBILINOGEN,URINE 0.2 (NORMAL) E.U./dL (NORMAL)
[2020-11-20 17:36] LABS: PT - PROTHROMBIN TIME 11.6 secs (9.9-12.6)
[2020-11-20 17:36] LABS: CLARITY,URINE HAZY (CLEAR)
[2020-11-20 17:39] LABS: BACTERIA,URINE Few /HPF (None Seen); RBC,URINE TNTC /HPF (0-5); SQUAMOUS EPITHELIAL CELL,UR RARE Squamous (<= Few); WBC,URINE >25 /HPF (0-3)
[2020-11-20 17:44] LABS: PARTIAL THROMBOPLASTIN TIME 19.4 secs (24.9-33.3)
--- NOTE | 2020-11-20 17:45 | XRAY Report ---
PROCEDURE: Chest 1 View X-Ray INDICATIONS: fever, s/p R ureteral stent TECHNIQUE: One view of the chest was acquired. COMPARISON: 09/08/2019 FINDINGS: Surgical changes and devices: None. Lungs and pleura: No pleural effusions or pneumothorax. Lungs are clear. Mediastinum: Mediastinal contours appear normal. Heart size is normal. Bones and chest wall: No suspicious bony lesions. Age-appropriate degenerative changes are seen. O verlying soft tissues appear unremarkable. IMPRESSION: Portable chest within normal limits for age. Reviewed by: Marlon Mcdaniels MD on 11/20/2020 4:43 PM AKDT Approved by: Marlon Mcdaniels MD on 11/20/2020 4:43 PM AKDT Station ID: [id number]
--- NOTE | 2020-11-20 18:10 | CT Report ---
PROCEDURE: Abdomen/Pelvis W INDICATIONS: fever s/p R ureteral stent placement 3 days ago CONTRAST: IV CONTRAST: Optiray 320 ml: 100 PO CONTRAST: *NO PO CONTRAST TECHNIQUE: After the administration of 100 cc nonionic IV contrast, 5 mm thick sections acquired from the diaphr agms to the symphysis. 5 mm thick coronal and sagittal reformats were acquired. For radiation dose reduction, the following was used: automated exposure control, adjustment of mA and/or kV according to patient size. COMPARISON: 04/03/2013, at 1116 FINDINGS: Image quality: Excellent. ABDOMEN: Lung bases: Lung bases are clear. Heart size is normal. A small hiatal hernia is incidentally note d. Solid organs: Liver and spleen are normal in size and enhancement. Diffuse fatty liver infiltration can be seen. Gallbladder has been removed. Biliary system is non dilated. Pancreas enhances norm ally. No adrenal nodules. The right kidney is atrophic and low lying. There is a right-sided ureteral stent seen, with the ends in the expected locations. Prominence of the right renal pelvis can be seen, without jose hydrouret er. The left kidney is within normal limits, without hydronephrosis. Peritoneum and bowel: Bowel loops demonstrate normal wall thickness and caliber. No free fluid or a ir. There is a normal appendix seen, as on series 3 image 55. Diverticulosis can be seen, without fr ank findings of active diverticulitis. Nodes and vessels: No retroperitoneal or mesenteric adenopathy by size criteria. Aorta and inferior vena cava are normal in size. Miscellaneous: A mild fat-containing periumbilical hernia is seen. PELVIS: Genitourinary: Bladder wall thickness is normal. Miscellaneous: No inguinal hernias or adenopathy. Bones: No suspicious bony lesions. No vertebral body compression fractures. Degenerative changes a re seen throughout, which are worst involving the lower lumbar spine. IMPRESSION: Unremarkable right-sided ureteral stent. The right kidney is atrophic and low lying. Prominence of the right renal pelvis can be seen. Incidental note is made of: Small hiatal hernia Cholecystectomy Fatty liver infiltration Fat-containing periumbilical hernia Diverticulosis, without active diverticulitis Lower lumbar spine degenerative change Reviewed by: Marlon Mcdaniels MD on 11/20/2020 5:09 PM MARLENE Approved by: Marlon Mcdaniels MD on 11/20/2020 5:09 PM MARLENE Station ID: [id number]
[2020-11-20] MEDS ORDERED: cefTRIAXone 1 GM VIAL IVP STA (18:16)
[2020-11-20 18:19] LABS: B. PARAPERTUSSIS- RESP PCR PAN NOT DETECTED; B. PERTUSSIS- RESP PCR PANEL NOT DETECTED; C. PNEUMONIAE- RESP PCR PANEL NOT DETECTED; CORONAVIRUS 229E-RESP PCR NOT DETECTED; CORONAVIRUS HKU1-RESP PCR NOT DETECTED; CORONAVIRUS NL63-RESP PCR NOT DETECTED; CORONAVIRUS OC43-RESP PCR NOT DETECTED; HUMAN METAPNEUMOVIRUS NOT DETECTED; INFLUENZA A- RESP PCR PANEL NOT DETECTED; INFLUENZA B - RESP PCR PANEL NOT DETECTED; M. PNEUMONIAE- RESP PCR PANEL NOT DETECTED; PARAINFLUENZA VIRUS 1 NOT DETECTED; PARAINFLUENZA VIRUS 2 NOT DETECTED; PARAINFLUENZA VIRUS 3 NOT DETECTED; PARAINFLUENZA VIRUS 4 NOT DETECTED; RHINOVIRUS/ENTEROVIRUS NOT DETECTED; RSV- RESP PCR PANEL NOT DETECTED; SARS-CoV-2 -RESP PCR PANEL NOT DETECTED
[2020-11-20] MEDS ORDERED: SODIUM CHLORIDE 0.9% 1,000 ML IV STA ×2 (18:38)
[2020-11-20 19:27] VITALS: BP 121/73
[2020-11-20] MEDS ORDERED: ACETAMINOPHEN 325 MG TABLET PO STA (20:29)
== END 2020-11-20 20:59 | disposition short-term general hospital (02) ==
LOC: ED 16:54
DX: N12 Tubulo-interstitial nephritis, not specified as acute or chronic (principal); Z96.0 Presence of urogenital implants; Z20.822 Contact with and (suspected) exposure to COVID-19; I10 Essential (primary) hypertension; Z79.82 Long term (current) use of aspirin
CPT/HCPCS: 36415; 71045; 74177; 80053; 81001; 83605; 83690; 85025; 85610; 85730; 87040; 87077; 87086; 87181; 87631; 96361; 96374; 99284; 99285; A9270; Q9967; 0202U; 81003

== ENCOUNTER 2020-11-20 21:01 | Outpatient (CLI) | payer MEDICARE, OTHER | END 2020-11-20 23:59 | disposition short-term general hospital (02) | LOC: EMS 21:01 | DX: N12 Tubulo-interstitial nephritis, not specified as acute or chronic (principal) | CPT/HCPCS: A0425; A0428 ==

== ENCOUNTER 2021-08-17 08:00 | Outpatient (CLI) | payer MEDICARE, OTHER ==
[2021-08-17 12:06] LABS: BASOPHILS # (AUTO) 0.1 10^3/uL (0.0-0.1); BASOPHILS % (AUTO) 1.4 %; EOSINOPHILS # (AUTO) 0.3 10^3/uL (0.0-0.7); EOSINOPHILS % (AUTO) 5.3 %; HGB - HEMOGLOBIN 14.9 g/dL (14.0-18.0); LYMPHOCYTES % (AUTO) 20.2 %; MEAN CORPUSCULAR HEMOGLOBIN 29.9 pg (27.0-31.0); MEAN CORPUSCULAR HGB CONC 33.9 g/dL (32.0-36.0); MEAN CORPUSCULAR VOLUME 88.2 fL (80.0-94.0); MEAN PLATELET VOLUME 11.4 fL (7.4-11.4); MONOCYTES # (AUTO) 0.5 10^3/uL (0.0-1.0); MONOCYTES % (AUTO) 10.1 %; NEUTROPHILS # (AUTO) 3.1 10^3/uL (1.5-6.6); NEUTROPHILS % (AUTO) 62.8 %; PLT - PLATELET COUNT 227 10^3/uL (130-450); RED BLOOD COUNT 4.99 10^6/uL (4.70-6.10); RED CELL DISTRIBUTION WIDTH 12.7 % (12.0-15.0); WHITE BLOOD COUNT 4.9 x10^3/uL (4.8-10.8)
[2021-08-17 13:05] LABS: THYROID STIMULATING HORMONE 3.36 uIU/mL (0.34-5.60)
[2021-08-17 13:28] LABS: ALBUMIN 4.1 g/dL (3.2-5.5); ALBUMIN/GLOBULIN RATIO 1.4 (1.0-2.2); ALKALINE PHOSPHATASE 79 IU/L (42-121); ALT ALANINE AMINOTRANSFERASE 42 IU/L (10-60); AST ASPARTATE AMINOTRANSFERASE 28 IU/L (10-42); BUN - BLOOD UREA NITROGEN 28 mg/dL (6-20); CALCIUM 9.1 mg/dL (8.5-10.3); CARBON DIOXIDE - CO2 25 mmol/L (21-32); CHLORIDE 106 mmol/L (101-111); CHOL/HDL RATIO 4.3 (<5.0); CHOLESTEROL 139 mg/dL; CREATININE 1.4 mg/dL (0.6-1.2); GFR - MDRD 49 (>89); GLUCOSE 101 mg/dL (70-100); HDL CHOLESTEROL 32 mg/dL; LDL CHOLESTEROL,CALCULATED 80 mg/dL; LDL/HDL RATIO 2.5 (<3.6); SODIUM 140 mmol/L (135-145); TOTAL PROTEIN 7.1 g/dL (6.7-8.2); TRIGLYCERIDES 133 mg/dL; VLDL CHOLESTEROL 27 mg/dL
[2021-08-17 14:17] LABS: ESTIMATED AVERAGE GLUCOSE 108 mg/dL (70-100); HEMOGLOBIN A1c% 5.4 % (4.27-6.07)
== END 2021-08-17 23:59 | disposition home or self-care (01) ==
LOC: LAB.WCP 08:00
PROVIDERS: ATTEND Internal Medicine
DX: I10 Essential (primary) hypertension (principal); G60.9 Hereditary and idiopathic neuropathy, unspecified; N40.1 Benign prostatic hyperplasia with lower urinary tract symptoms
CPT/HCPCS: 36415; 80053; 80061; 81599; 82607; 83036; 83721; 84153; 84155; 84165; 84443; 85025; 86334

== ENCOUNTER 2022-05-03 10:38 | Emergency (ER) | payer MEDICARE, OTHER ==
[2022-05-03 11:46] LABS: BASOPHILS % (AUTO) 0.5 %; EOSINOPHILS # (AUTO) 0.1 10^3/uL (0.0-0.7); EOSINOPHILS % (AUTO) 1.1 %; HCT - HEMATOCRIT 41.1 % (42.0-52.0); HGB - HEMOGLOBIN 14.1 g/dL (14.0-18.0); LYMPHOCYTES # (AUTO) 0.9 10^3/uL (1.5-3.5); LYMPHOCYTES % (AUTO) 10.6 %; MEAN CORPUSCULAR HEMOGLOBIN 30.1 pg (27.0-31.0); MEAN CORPUSCULAR HGB CONC 34.3 g/dL (32.0-36.0); MEAN CORPUSCULAR VOLUME 87.8 fL (80.0-94.0); MONOCYTES # (AUTO) 0.8 10^3/uL (0.0-1.0); MONOCYTES % (AUTO) 8.6 %; NEUTROPHILS # (AUTO) 6.9 10^3/uL (1.5-6.6); PLT - PLATELET COUNT 218 10^3/uL (130-450); RED BLOOD COUNT 4.68 10^6/uL (4.70-6.10); RED CELL DISTRIBUTION WIDTH 13.1 % (12.0-15.0); WHITE BLOOD COUNT 8.7 x10^3/uL (4.8-10.8)
[2022-05-03 12:10] LABS: ALBUMIN 3.9 g/dL (3.2-5.5); ALBUMIN/GLOBULIN RATIO 1.1 (1.0-2.2); BILIRUBIN,TOTAL 1.3 mg/dL (0.2-1.0); CALCIUM 9.5 mg/dL (8.5-10.3); CREATININE 1.6 mg/dL (0.6-1.2); POTASSIUM 4.4 mmol/L (3.5-5.0); TOTAL PROTEIN 7.3 g/dL (6.7-8.2)
[2022-05-03 12:22] LABS: BILIRUBIN,URINE NEGATIVE (NEGATIVE); GLUCOSE, URINE (UA) NEGATIVE (NEGATIVE); KETONES,URINE (UA) NEGATIVE (NEGATIVE); LEUKOCYTE ESTERASE, URINE NEGATIVE (NEGATIVE); NITRITE,URINE NEGATIVE (NEGATIVE); OCCULT BLOOD,URINE NEGATIVE (NEGATIVE); PROTEIN,URINE NEGATIVE (NEGATIVE); UROBILINOGEN,URINE 0.2 (NORMAL) E.U./dL (NORMAL)
[2022-05-03 12:26] LABS: CLARITY,URINE CLEAR (CLEAR)
[2022-05-03] MEDS ORDERED: SODIUM CHLORIDE 0.9% 1,000 ML IV STA (13:52)
[2022-05-03] MEDS ORDERED: HYDROmorphone 1 MG/ML CARPUJECT IVP STA (13:59)
--- NOTE | 2022-05-03 14:03 | ED Physician Documentation ---
History of Present Illness - Stated complaint Stated Complaint: L SIDE PAIN - Chief complaint Chief Complaint: Abd Pain - Additonal information Additional information: 76-year-old male presents emergency department for evaluation of acute left sided abdominal pain that began yesterday. He describes it is quite severe yesterday. Some fever no vomiting. He states it is eased off some today but not enough therefore he presents for evaluation. 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 His baseline BUN and creatinine are approximately 30 and 1.6 respectively. Previous cholecystectomy He does have a history of routine colonoscopy screenings. Reports that benign polyps have been removed. He states he has been constipated recently. No fevers or vomiting. No melena or hematochezia Review of Systems Constitutional: denies: Fever, Chills Throat: reports: Reviewed and negative Cardiac: reports: Reviewed and negative Respiratory: reports: Reviewed and negative GI: reports: Abdominal Pain, Constipation. denies: Nausea, Vomiting, Hematemesis : reports: Reviewed and negative Skin: reports: Reviewed and negative Musculoskeletal: reports: Reviewed and negative PD PAST MEDICAL HISTORY - Past Medical History Cardiovascular: Hypertension, High cholesterol Respiratory: Sleep apnea, CPAP use Neuro: None Endocrine/Autoimmune: None GI: GERD (controlled on medication) : Other (right hydronephrosis) HEENT: Chronic vision loss, Chronic hearing loss Psych: None Musculoskeletal: Chronic back pain Derm: None - Past Surgical History Past Surgical History: Yes General: Cholecystectomy Ortho: Other - Present Medications Home Medications: Ambulatory Orders Medication Instructions Recorded Confirmed Aspirin Chewable [[place] 81 mg PO DAILY 06/20/16 11/20/20 Aspirin] Atorvastatin [Lipitor] 10 mg PO DAILY PM 06/20/16 11/20/20 Magnesium Oxide 500 mg PO DAILY 09/08/19 11/20/20 Telmisartan [Micardis] 80 mg PO DAILY 09/08/19 11/20/20 hydroCHLOROthiazide 12.5 mg PO DAILY 09/08/19 11/20/20 [Hydrochlorothiazide] Aspirin [Aspirin EC] 81 mg PO DAILY 11/20/20 11/20/20 Tamsulosin [Flomax] 0.4 mg PO DAILY 11/20/20 11/20/20 amLODIPine [Norvasc] 5 mg PO DAILY 11/20/20 11/20/20 Amox/Clav 875/125 [Augmentin] 1 each PO Q12H #20 tablet 05/03/22 oxyCODONE [Roxicodone] 5 mg PO TID PRN #10 tablet 05/03/22 - Allergies Allergies/Adverse Reactions: Allergies Allergy/AdvReac Type Severity Reaction Status Date / Time No Known Drug Allergies Allergy Verified 05/03/22 11:15 - Social History Does the pt smoke?: No Smoking Status: Never smoker Does the pt drink ETOH?: Yes Does the pt have substance abuse?: No - Immunizations Immunizations are current?: Yes - POLST Patient has POLST: No PD ED PE NORMAL - General General: Alert and oriented X 3, No acute distress, Well developed/nourished - HEENT HEENT: Atraumatic - Neck Neck: Supple, no meningeal sign - Cardiac Cardiac: RRR, No murmur - Respiratory Respiratory: No respiratory distress - Abdomen Abdomen: Normal bowel sounds, Soft. No: Non tender (Rebound tenderness and guarding to the left abdomen and flank. No CVA tenderness.) - Back Back: No CVA TTP - Derm Derm: Normal color, Warm and dry, No rash - Extremities Extremities: No deformity - Neuro Neuro: Alert and oriented X 3, cryptanalyst 2-12 intact Eye Opening: Spontaneous Motor: Obeys Commands Verbal: Oriented GCS Score: 15 - Psych Psych: Normal mood Results - Vitals Vitals: Vital Signs - 24 hr 05/03/22 05/03/22 11:12 14:27 Temperature 37.1 C 37.0 C Heart Rate 69 64 Respiratory 14 18 Rate Blood Pressure 146/70 H 141/80 H O2 Saturation 96 96 Oxygen O2 Source Room air - Labs Labs: Laboratory Tests 05/03/22 05/03/22 05/03/22 11:42 11:42 12:02 WBC 8.7 RBC 4.68 L Hgb 14.1 Hct 41.1 L MCV 87.8 MCH 30.1 MCHC 34.3 RDW 13.1 Plt Count 218 MPV 11.0 Neut # (Auto) 6.9 H Lymph # (Auto) 0.9 L [place] # (Auto) 0.8 Eos # (Auto) 0.1 Baso # (Auto) 0.0 Absolute Nucleated RBC 0.00 Nucleated RBC % 0.0 Sodium 137 Potassium 4.4 Chloride 101 Carbon Dioxide 28 Anion Gap 8.0 BUN 27 H Creatinine 1.6 H Estimated GFR (MDRD) 42 L Glucose 112 H Calcium 9.5 Total Bilirubin 1.3 H AST 17 ALT 21 Alkaline Phosphatase 74 Total Protein 7.3 Albumin 3.9 Globulin 3.4 Albumin/Globulin Ratio 1.1 Lipase 36 Urine Color YELLOW Urine Clarity CLEAR Urine pH 6.0 Ur Specific [place] 1.010 Urine Protein NEGATIVE Urine Glucose (UA) NEGATIVE Urine Ketones NEGATIVE Urine Occult Blood NEGATIVE Urine Nitrite NEGATIVE Urine Bilirubin NEGATIVE Urine Urobilinogen 0.2 (NORMAL) Ur Leukocyte Esterase NEGATIVE Ur Microscopic Review NOT INDICATED Urine Culture Comments NOT INDICATED - Rads (name of study) CT abd Radiology: Final report received (Acute diverticulitis of the descending colon. Atrophic pelvic right kidney. ureter stent in place. Enlarged prostate) PD MEDICAL DECISION MAKING - ED course Complexity details: reviewed results, re-evaluated patient, d/w patient ED course: 76-year-old male presents emergency department for evaluation of 2 days acute left-sided abdominal pain. He does report some recent constipation. No fevers or vomiting. Screening labs showed no acute worrisome findings. He does have mildly elevated BUN and creatinine given a history of right renal atrophy. However in comparison to his recently obtained [facility] this is unchanged from baseline. CT of the abdomen does show acute uncomplicated descending diverticulitis. Patient will be started on Augmentin. Limited prescription for oxycodone sent to the pharmacy. Discussed close follow-up with PCP. Emergent worrisome return precautions discussed Departure - Departure Disposition: 01 Home, Self Care Clinical Impression: Diverticulitis Condition: Stable Record reviewed to determine appropriate education?: Yes Instructions: Diverticulitis Dc Prescriptions: Amox/Clav 875/125 [Augmentin] 1 each PO Q12H #20 tablet oxyCODONE [Roxicodone] 5 mg PO TID PRN #10 tablet PRN Reason: Pain Comments: Freddy, Has been a pleasure to care for you today. You were seen today because you have had 2 days of left-sided abdominal pain. Your screening labs did not show any worrisome findings however the CT of your abdomen does show acute uncomplicated diverticulitis. A prescription for an antibiotic called Augmentin has been sent to the [facility] in [place]. A limited prescription of oxycodone for pain has also been sent. In general I would like you to have a clear liquid diet for the next 48 to 72 hours. If with the antibiotics and pain medicine your symptoms are improving you can slowly advance your diet with bananas, rice applesauce and then toast. You can take Tylenol or ibuprofen [id number] for discomfort before using the oxycodone. If at any point you find that your symptoms are worsening, you develop fevers, have black or bloody stools or worsening pain despite this treatment you should return immediately to any emergency department
[2022-05-03 14:28] VITALS: BP 141/80
--- NOTE | 2022-05-03 14:28 | CT Report ---
PROCEDURE: Abdomen/Pelvis WO INDICATIONS: left abd pain TECHNIQUE: Noncontrast 5 mm thick sections acquired from the diaphragms to the symphysis. 5 mm coronal and sagi ttal reformats were then performed. For radiation dose reduction, the following was used: automated exposure control, adjustment of mA and/or kV according to patient size. COMPARISON: CT abdomen and pelvis dated 11/20/2020.. FINDINGS: Image quality: Excellent. ABDOMEN: Lung bases: Lung bases are clear. Heart size is normal. Solid organs: Liver and spleen are normal in size. Gallbladder is surgically absent. Pancreas is n ormal in contours. No adrenal nodules. 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 It is again noted to be diffusely small and shrunken, and likely nonfunctional. It has a double-J ureteral stent present in its ureter extending into the bladder. The left kidney is unremarkable. Per itoneum and bowel: Acute diverticulitis involving the descending colon. There is extensive associated inflammatory change in the subjacent fat and minimal paracolic gutter fluid. No free fluid or air. Nodes and vessels: No retroperitoneal or mesenteric adenopathy by size criteria. Aorta and inferior vena cava are normal in caliber. Miscellaneous: No ventral hernias. PELVIS: Genitourinary: Bladder wall thickness is normal. Prostate is again noted to be quite enlarged. Miscellaneous: No inguinal hernias or adenopathy. Bones: No suspicious bony lesions. No vertebral body compression fractures. Lumbar degenerative jassi nge. IMPRESSION: 1. Acute diverticulitis of the descending colon. 2. Atrophic pelvic right kidney. Ureteral stent in place. 3. Enlarged prostate. Reviewed by: David Smith MD on 05/03/2022 2:27 PM PDT Approved by: David Smith MD on 05/03/2022 2:27 PM PDT Station ID: [id number]
[2022-05-03] MEDS ORDERED: AMOX/CLAV 875 MG/125 MG TABLET PO STA (14:55)
[2022-05-03] MEDS ORDERED: oxyCODONE 5 MG TABLET PO STA (14:55)
== END 2022-05-03 15:30 | disposition home or self-care (01) ==
LOC: ED 10:38
DX: K57.32 Diverticulitis of large intestine without perforation or abscess without bleeding (principal); I10 Essential (primary) hypertension
CPT/HCPCS: 36415; 74176; 80053; 81003; 83690; 85025; 96374; 99284; A9270; J1170; 81001; 87086

== ENCOUNTER 2022-08-18 15:05 | Outpatient (CLI) | payer MEDICARE, OTHER ==
--- NOTE | 2022-08-18 15:27 | XRAY Report ---
PROCEDURE: Chest 2 View X-Ray INDICATIONS: BRONCHITIS,ACUTE TECHNIQUE: 2 views of the chest were acquired. COMPARISON: 11/20/2020 FINDINGS: Surgical changes and devices: None. Lungs and pleura: No pleural effusions or pneumothorax. Lungs are clear. Mediastinum: Mediastinal contours are normal. Heart size is normal. Bones and chest wall: No suspicious bony abnormalities. Soft tissues appear unremarkable. IMPRESSION: No acute process. Reviewed by: Jesse Bowen MD on 08/18/2022 2:25 PM RUST Approved by: Jesse Bowen MD on 08/18/2022 2:25 PM RUST Station ID: [id number]
== END 2022-08-18 15:06 | disposition home or self-care (01) ==
LOC: DI 15:05
PROVIDERS: ATTEND Family Medicine
DX: J20.9 Acute bronchitis, unspecified (principal)

== ENCOUNTER 2022-11-02 09:49 | Outpatient (CLI) | payer MEDICARE, OTHER ==
[2022-11-02 10:03] LABS: BASOPHILS # (AUTO) 0.1 10^3/uL (0.0-0.1); BASOPHILS % (AUTO) 1.1 %; EOSINOPHILS # (AUTO) 0.2 10^3/uL (0.0-0.7); EOSINOPHILS % (AUTO) 3.6 %; HCT - HEMATOCRIT 43.9 % (42.0-52.0); HGB - HEMOGLOBIN 14.8 g/dL (14.0-18.0); LYMPHOCYTES # (AUTO) 1.2 10^3/uL (1.5-3.5); LYMPHOCYTES % (AUTO) 18.3 %; MEAN CORPUSCULAR HEMOGLOBIN 29.4 pg (27.0-31.0); MEAN CORPUSCULAR HGB CONC 33.7 g/dL (32.0-36.0); MEAN CORPUSCULAR VOLUME 87.1 fL (80.0-94.0); MEAN PLATELET VOLUME 10.6 fL (7.4-11.4); MONOCYTES # (AUTO) 0.6 10^3/uL (0.0-1.0); MONOCYTES % (AUTO) 9.9 %; NEUTROPHILS # (AUTO) 4.2 10^3/uL (1.5-6.6); NEUTROPHILS % (AUTO) 66.8 %; PLT - PLATELET COUNT 236 10^3/uL (130-450); RED BLOOD COUNT 5.04 10^6/uL (4.70-6.10); RED CELL DISTRIBUTION WIDTH 12.9 % (12.0-15.0); WHITE BLOOD COUNT 6.3 x10^3/uL (4.8-10.8)
[2022-11-02 10:28] LABS: ALBUMIN 4.3 g/dL (3.2-5.5); ALBUMIN/GLOBULIN RATIO 1.3 (1.0-2.2); ALKALINE PHOSPHATASE 77 IU/L (42-121); ALT ALANINE AMINOTRANSFERASE 31 IU/L (10-60); AST ASPARTATE AMINOTRANSFERASE 24 IU/L (10-42); BILIRUBIN,TOTAL 1.3 mg/dL (0.2-1.0); BUN - BLOOD UREA NITROGEN 35 mg/dL (6-20); CALCIUM 9.6 mg/dL (8.5-10.3); CARBON DIOXIDE - CO2 28 mmol/L (21-32); CHLORIDE 102 mmol/L (101-111); CHOL/HDL RATIO 4.5 (<5.0); CHOLESTEROL 153 mg/dL; CREATININE 1.6 mg/dL (0.6-1.2); GFR - MDRD 42 (>89); GLUCOSE 101 mg/dL (70-100); HDL CHOLESTEROL 34 mg/dL; LDL CHOLESTEROL,CALCULATED 88 mg/dL; LDL/HDL RATIO 2.6 (<3.6); POTASSIUM 4.1 mmol/L (3.5-5.0); SODIUM 136 mmol/L (135-145); TOTAL PROTEIN 7.5 g/dL (6.7-8.2); TRIGLYCERIDES 157 mg/dL; VLDL CHOLESTEROL 31 mg/dL
== END 2022-11-02 09:50 | disposition home or self-care (01) ==
LOC: LAB 09:49
PROVIDERS: ATTEND Internal Medicine
DX: I10 Essential (primary) hypertension (principal); E78.5 Hyperlipidemia, unspecified
CPT/HCPCS: 36415; 80053; 80061; 83721; 85025

== ENCOUNTER 2023-04-16 10:01 | Outpatient (CLI) | payer MEDICARE, OTHER ==
[2023-04-16 10:12] LABS: BASOPHILS # (AUTO) 0.1 10^3/uL (0.0-0.1); BASOPHILS % (AUTO) 1.2 %; EOSINOPHILS # (AUTO) 0.3 10^3/uL (0.0-0.7); EOSINOPHILS % (AUTO) 4.3 %; HCT - HEMATOCRIT 44.2 % (42.0-52.0); HGB - HEMOGLOBIN 14.6 g/dL (14.0-18.0); LYMPHOCYTES % (AUTO) 16.9 %; MEAN CORPUSCULAR HEMOGLOBIN 29.1 pg (27.0-31.0); MEAN PLATELET VOLUME 10.6 fL (7.4-11.4); MONOCYTES # (AUTO) 0.6 10^3/uL (0.0-1.0); MONOCYTES % (AUTO) 9.4 %; PLT - PLATELET COUNT 235 10^3/uL (130-450); RED BLOOD COUNT 5.02 10^6/uL (4.70-6.10); RED CELL DISTRIBUTION WIDTH 12.8 % (12.0-15.0); WHITE BLOOD COUNT 5.9 x10^3/uL (4.8-10.8)
[2023-04-16 10:29] LABS: ALBUMIN 4.3 g/dL (3.2-5.5); ALBUMIN/GLOBULIN RATIO 1.5 (1.0-2.2); BILIRUBIN,TOTAL 0.8 mg/dL (0.2-1.0); CREATININE 1.5 mg/dL (0.6-1.3); POTASSIUM 4.4 mmol/L (3.5-4.5); TOTAL PROTEIN 7.1 g/dL (6.4-8.9)
== END 2023-04-16 10:02 | disposition home or self-care (01) ==
LOC: LAB 10:01
PROVIDERS: ATTEND Internal Medicine
DX: I12.9 Hypertensive chronic kidney disease with stage 1 through stage 4 chronic kidney disease, or unspecified chronic kidney disease (principal); N18.31 Chronic kidney disease, stage 3a
CPT/HCPCS: 36415; 80053; 85025

== ENCOUNTER 2024-03-17 08:33 | Outpatient (CLI) | payer MEDICARE, OTHER ==
[2024-03-17 08:48] LABS: BASOPHILS # (AUTO) 0.1 10^3/uL (0.0-0.1); BASOPHILS % (AUTO) 0.9 %; EOSINOPHILS # (AUTO) 0.2 10^3/uL (0.0-0.7); EOSINOPHILS % (AUTO) 4.2 %; HCT - HEMATOCRIT 40.5 % (42.0-52.0); HGB - HEMOGLOBIN 13.8 g/dL (14.0-18.0); LYMPHOCYTES # (AUTO) 1.1 10^3/uL (1.5-3.5); MEAN CORPUSCULAR HEMOGLOBIN 29.6 pg (27.0-31.0); MEAN CORPUSCULAR HGB CONC 34.1 g/dL (32.0-36.0); MEAN CORPUSCULAR VOLUME 86.9 fL (80.0-94.0); MEAN PLATELET VOLUME 9.6 fL (7.4-11.4); MONOCYTES # (AUTO) 0.6 10^3/uL (0.0-1.0); MONOCYTES % (AUTO) 10.6 %; NEUTROPHILS # (AUTO) 3.7 10^3/uL (1.5-6.6); NEUTROPHILS % (AUTO) 64.8 %; PLT - PLATELET COUNT 261 10^3/uL (130-450); RED BLOOD COUNT 4.66 10^6/uL (4.70-6.10); WHITE BLOOD COUNT 5.7 x10^3/uL (4.8-10.8)
[2024-03-17 09:02] LABS: ALBUMIN 4.1 g/dL (3.2-5.5); ALBUMIN/GLOBULIN RATIO 1.3 (1.0-2.2); ALKALINE PHOSPHATASE 93 IU/L (42-121); ALT ALANINE AMINOTRANSFERASE 25 IU/L (10-60); AST ASPARTATE AMINOTRANSFERASE 21 IU/L (10-42); BILIRUBIN,TOTAL 0.7 mg/dL (0.2-1.0); BUN - BLOOD UREA NITROGEN 32 mg/dL (6-20); CARBON DIOXIDE - CO2 27 mmol/L (21-32); CHLORIDE 106 mmol/L (101-111); CHOL/HDL RATIO 3.5 (<5.0); CHOLESTEROL 139 mg/dL; CREATININE 1.6 mg/dL (0.6-1.3); GFR - MDRD 42 (>89); GLUCOSE 107 mg/dL (74-104); HDL CHOLESTEROL 40 mg/dL; LDL CHOLESTEROL,CALCULATED 74 mg/dL; LDL/HDL RATIO 1.9 (<3.6); POTASSIUM 3.9 mmol/L (3.5-4.5); SODIUM 139 mmol/L (135-145); TOTAL PROTEIN 7.2 g/dL (6.4-8.9); TRIGLYCERIDES 126 mg/dL; VLDL CHOLESTEROL 25 mg/dL
[2024-03-17 09:17] LABS: THYROID STIMULATING HORMONE 1.91 uIU/mL (0.34-5.60)
== END 2024-03-17 08:34 | disposition home or self-care (01) ==
LOC: LAB 08:33
PROVIDERS: ATTEND Internal Medicine
DX: I10 Essential (primary) hypertension (principal); E78.5 Hyperlipidemia, unspecified; E53.8 Deficiency of other specified B group vitamins; R00.2 Palpitations
CPT/HCPCS: 36415; 80053; 80061; 82607; 83721; 84443; 85025

== ENCOUNTER 2024-03-31 16:29 | Outpatient (CLI) | payer MEDICARE, OTHER ==
--- NOTE | 2024-04-01 01:31 | MRI Report ---
PROCEDURE: Lumbar Spine WO INDICATIONS: LUMBAR DDD TECHNIQUE: Multiplanar multisequential MRI images of the lumbar spine were obtained without intraven ous contrast. COMPARISON: None. FINDINGS: Alignment and Curvature: There is normal bony alignment. Bone Marrow: Marrow is of normal overall signal. No acute vertebral body compression fractures. No sacral fractures. Spinal Cord: Conus medullaris terminates at the L1 level. Visualized cord demonstrates normal signa l and size. Paraspinal Soft Tissues: Unremarkable perivertebral soft tissues. T12-L1: Normal in appearance. L1-L2: Normal in appearance. L2-L3: Disc bulge and ligamentum flavum laxity. Moderate central stenosis. Mild bilateral foramina l stenosis L3-L4: Disc bulge and flavum laxity. Moderate central stenosis. Moderate right and mild left forami nal stenosis L4-L5: Disc bulge and flavum laxity. Mild central stenosis. Moderate right and mild left foraminal stenosis. L5-S1: No central or foraminal stenosis IMPRESSION: Multilevel degenerative disc disease and arthropathy results in varying degrees of central and forami nal stenosis including moderate central stenosis at L2-3 and L3-4 Reviewed by: Dax Gomez MD on 04/01/2024 12:29 AM MARLENE Approved by: Dax Gomez MD on 04/01/2024 12:29 AM MARLENE Station ID: [id number]
--- NOTE | 2024-04-01 15:39 | XRAY Report ---
PROCEDURE: Hips w/Pelvis 2-3V BL INDICATIONS: HIP PAIN TECHNIQUE: 2 view(s) of the hip were acquired. COMPARISON: CT of abdomen and pelvis dated 05/03/2022. FINDINGS: Bones: No fractures or dislocations. Bilateral hip joint osteoarthritic changes are seen. No evidenc e of avascular necrosis of femoral head. No suspicious bony lesions. The visualized pelvic ring appe ars intact. Soft tissues: No suspicious soft tissue calcifications or masses. A ureteral stent is again seen in lower abdomen and pelvis which was also seen on previous CT study. IMPRESSION: Bilateral hip joint osteoarthritis. No acute pelvic or hip fracture. No evidence of avascular necrosi s. Reviewed by: Jose Alfredo Sherwood MD on 04/01/2024 3:37 PM PDT Approved by: Jose Alfredo Sherwood MD on 04/01/2024 3:37 PM PDT Station ID: [id number]
== END 2024-03-31 16:30 | disposition home or self-care (01) ==
LOC: DI 16:29
PROVIDERS: ATTEND Internal Medicine
DX: I73.9 Peripheral vascular disease, unspecified (principal); M51.36 Other intervertebral disc degeneration, lumbar region; M47.816 Spondylosis without myelopathy or radiculopathy, lumbar region; M48.061 Spinal stenosis, lumbar region without neurogenic claudication

== ENCOUNTER 2024-04-28 09:06 | Outpatient (CLI) | payer MEDICARE, OTHER | END 2024-04-28 09:07 | disposition home or self-care (01) | LOC: LAB.N 09:06 | PROVIDERS: ATTEND Urology | DX: R39.9 Unspecified symptoms and signs involving the genitourinary system (principal) | CPT/HCPCS: 87086 ==

== ENCOUNTER 2024-05-18 07:10 | Outpatient (CLI) | payer MEDICARE, OTHER ==
--- NOTE | 2024-05-18 20:42 | Ultrasound Report ---
PROCEDURE: Arterial Duplex Lwr Ext BL INDICATIONS: BILATERAL CLAUDCATION TECHNIQUE: Color and pulse Doppler interrogation was performed of both lower extremity arterial systems, with im age documentation. COMPARISON: None FINDINGS: Right lower extremity: Common femoral artery: 105 cm/sec, with triphasic flow. Deep femoral artery: 63 cm/sec, with biphasic flow. Proximal superficial femoral artery: 75 cm/sec, with triphasic flow. Mid superficial femoral artery: 70 cm/sec, with triphasic flow. Distal superficial femoral artery: 47 cm/sec, with triphasic flow. Popliteal artery: 71 cm/sec, with triphasic flow. Posterior tibial artery: 108 cm/sec, with triphasic flow. Anterior tibial artery/dorsalis pedis: 48 cm/sec, with triphasic flow. Beasley-scale imaging description: No significant atherosclerotic plaque. Left lower extremity: Common femoral artery: 100 cm/sec, with triphasic flow. Deep femoral artery: 52 cm/sec, with triphasic flow. Proximal superficial femoral artery: 79 cm/sec, with triphasic flow. Mid superficial femoral artery: 88 cm/sec, with triphasic flow. Distal superficial femoral artery: 64 cm/sec, with triphasic flow. Popliteal artery: 53 cm/sec, with triphasic flow. Posterior tibial artery: 80 cm/sec, with triphasic flow. Anterior tibial artery/dorsalis pedis: 37 cm/sec, with triphasic flow. Beasley-scale imaging description: No significant atherosclerotic plaque. IMPRESSION: Patent lower extremity vasculature without hemodynamically significant stenosis. Reviewed by: Jordan Luna MD on 05/18/2024 12:47 PM PDT Approved by: Jordan Luna MD on 05/18/2024 12:47 PM PDT Station ID: [id number]
== END 2024-05-18 07:11 | disposition home or self-care (01) ==
LOC: DI 07:10
PROVIDERS: ATTEND Internal Medicine
DX: I73.9 Peripheral vascular disease, unspecified (principal)
CPT/HCPCS: 93925; 93978